=== PATIENT | female | born 1950 | race African-American/Black ===

== ENCOUNTER → 2016-10-17 | Outpatient (CLI) | payer MEDICARE, OTHER ==
--- NOTE | 2016-10-17 12:29 | RADIOLOGY REPORT (SQ) ---
EXAM DESCRIPTION: L SPINE WHOLE COMPLETED DATE/TIME: 10/17/2016 9:53 am REASON FOR STUDY: OA OF BACK (M15) R60.9 EDEMA, UNSPECIFIED I73.9 PERIPHERAL VASCULAR DISEASE, UNS PECIFIED COMPARISON: None. NUMBER OF VIEWS: Five views including obliques. TECHNIQUE: AP, lateral, oblique, and sacral radiographic images acquired of the lumbar spine. LIMITATIONS: None. FINDINGS: MINERALIZATION: Osteopenic SEGMENTATION: 6 lumbar vertebral bodies are present. Additional segment without gabi is labeled T1 2. This puts the most inferior well-developed disc space at L5-S1. ALIGNMENT: Normal. VERTEBRAE: Maintained height. No fracture or worrisome bone lesion. DISCS: Disc space loss of height at L4-5 and L5-S1. POSTERIOR ELEMENTS: Pedicles and facets are intact. No pars defect or posterior arch defects. Bilat eral facet arthropathy at L3-4, L4-5, L5-S1. HARDWARE: None in the spine. PARASPINAL SOFT TISSUES: Normal. PELVIS: Intact as visualized. No fractures or worrisome bone lesions. SI joints intact. OTHER: Calcified abdominal aorta without calcified aneurysm. IMPRESSION: Degenerative changes lower lumbar spine TECHNICAL DOCUMENTATION: JOB ID: [id number] [employer]- All Rights Reserved
--- NOTE | 2016-10-17 12:30 | RADIOLOGY REPORT (SQ) ---
EXAM DESCRIPTION: VENOUS BILATERAL LOWER COMPLETED DATE/TIME: 10/17/2016 10:03 am REASON FOR STUDY: EDEMA, PERIPHERAL VASCULAR DISEASE R60.9 EDEMA, UNSPECIFIED I73.9 PERIPHERAL VAS CULAR DISEASE, UNSPECIFIED COMPARISON: None. TECHNIQUE: Dynamic and static lucas scale and color images acquired of both lower extremity venous sy stems. Selected spectral images acquired with additional compression and augmentation maneuvers. Imag es stored on PACS. LIMITATIONS: None. FINDINGS: RIGHT LEG COMMON FEMORAL AND FEMORAL: Normal phasicity, compression and augmentation. No visualized echogenic m aterial on lucas scale. No defects on color images. POPLITEAL: Normal compression and augmentation. No visualized echogenic material on lucas scale. No de fects on color images. CALF VESSELS: Normal compression and augmentation. No visualized echogenic material on lucas scale. No defects on color image. GSV AND SSV: Normal compression. No visualized echogenic material on lucas scale. No defects on color images. ANY DEEP VENOUS INSUFFICIENCY: Not evaluated. ANY EVIDENCE OF POPLITEAL CYST: No. OTHER: No other significant finding. LEFT LEG COMMON FEMORAL AND FEMORAL: Normal phasicity, compression and augmentation. No visualized echogenic m aterial on lucas scale. No defects on color images. POPLITEAL: Normal compression and augmentation. No visualized echogenic material on lucas scale. No de fects on color images. CALF VESSELS: Normal compression and augmentation. No visualized echogenic material on lucas scale. No defects on color images. GSV AND SSV: Normal compression. No visualized echogenic material on lucas scale. No defects on color images. ANY DEEP VENOUS INSUFFICIENCY: Not evaluated. ANY EVIDENCE POPLITEAL CYST: No. OTHER: No other significant finding. IMPRESSION: NO EVIDENCE DVT OR SVT IN EITHER LEG. TECHNICAL DOCUMENTATION: JOB ID: [id number] [employer]- All Rights Reserved
--- NOTE | 2016-10-17 12:31 | RADIOLOGY REPORT (SQ) ---
EXAM DESCRIPTION: ARTERIAL LOWER EXTREM BILAT COMPLETED DATE/TIME: 10/17/2016 10:04 am REASON FOR STUDY: EDEMA, PERIPHERAL VASCULAR DISEASE R60.9 EDEMA, UNSPECIFIED I73.9 PERIPHERAL VAS CULAR DISEASE, UNSPECIFIED COMPARISON: Venous Doppler bilateral lower extremities same date TECHNIQUE: Dynamic and static lucas scale and color images acquired of the lower extremity arteries. Additional selected spectral images recorded. ABIs recorded. LIMITATIONS: None. FINDINGS: RIGHT LEG: ABIS: Normal, over 1.0. INFLOW ARTERIES: Normal, no obstruction evident. FEMORAL ARTERIES:Multiphasic waveforms. Normal, no velocity elevation to suggest focal stenosis. Norm al color Doppler evaluation. No aneurysm. POPLITEAL ARTERY:Multiphasic waveforms. Normal, no velocity elevation to suggest focal stenosis. Norm al color Doppler evaluation. No aneurysm. PATENT TIBIOPERONEAL TRUNK AND 3 VESSEL RUNOFF: Yes, normal vessels. TBI: Not performed. OTHER: No other significant finding. LEFT LEG: ABIS: Normal, over 1.0. INFLOW ARTERIES: Normal, no obstruction evident. FEMORAL ARTERIES:Multiphasic waveforms. Normal, no velocity elevation to suggest focal stenosis. Norm al color Doppler evaluation. No aneurysm. POPLITEAL ARTERY:Multiphasic waveforms. Normal, no velocity elevation to suggest focal stenosis. Norm al color Doppler evaluation. No aneurysm. PATENT TIBIOPERONEAL TRUNK AND 3 VESSEL RUNOFF: Yes, normal vessels. TBI: Not performed. OTHER: No other significant finding. IMPRESSION: NORMAL BILATERAL LOWER EXTREMITY ARTERIAL DOPPLER WITH ABIs. COMMENT: [facility] NORMAL: Greater than 1.0 MINIMAL DISEASE: 0.9 to 1.0 CLAUDICATION: 0.5 to 0.9 SEVERE ARTERIAL DISEASE: Less than 0.5 [facility] NORMAL: Greater than 1.0 (1.2 If Heavy Calcifications) NORMAL TO MILD ISCHEMIA: 0.8 to 1.0 MODERATE ISCHEMIA: 0.4 to 0.8 SEVERE ISCHEMIA: Less than 0.4 TECHNICAL DOCUMENTATION: JOB ID: [id number]- All Rights Reserved
== END ==
LOC: SP 07:57
PROVIDERS: ATTEND Student in an Organized Health Care Education/Training Program
DX: I73.9 Peripheral vascular disease, unspecified (principal); R60.9 Edema, unspecified; M47.9 Spondylosis, unspecified
CPT/HCPCS: 72110; 93922; 93925; 93970

== ENCOUNTER 2016-12-10 12:32 | Observation (INO) | payer MEDICARE, OTHER ==
[2016-12-10] MEDS ORDERED: ASPIRIN 81 MG TABLET, CHEWABLE PO ONE (13:04)
--- NOTE | 2016-12-10 13:27 | ER Document Report ---
ED General - General Chief Complaint: Palpitations Stated Complaint: ABNORMAL LABS Time Seen by Provider: 12/10/16 13:04 Mode of Arrival: Ambulatory Information source: Patient Notes: 66-year-old female history of hypertension diabetes who was given nitroglycerin by her medical records director Dr. serrano presents with complaints of jaw pain arm pain shortness of breath palpitations. Symptoms initially started a few days prior. TRAVEL OUTSIDE OF THE [place] IN LAST 30 DAYS: No - HPI Onset: Other Onset/Duration: Persistent Quality of pain: Achy Severity: Mild Pain Level: 1 Associated symptoms: Chest pain Exacerbated by: Denies Relieved by: Denies Similar symptoms previously: Yes Recently seen / treated by doctor: Yes - Related Data Allergies/Adverse Reactions: Sulfa (Sulfonamide Antibiotics) Allergy (Mild, Verified 09/05/15 10:09) whelps, rash codeine [Codeine] Adverse Reaction (Intermediate, Verified 09/05/15 10:09) n/v Home Medications: Current Home Medications Alprazolam [Xanax] 1 mg PO BIDP PRN 12/10/16 [History] Aspirin [Aspirin EC] 81 mg PO DAILY 12/10/16 [History] Atenolol [Tenormin 50 mg Tablet] 50 mg PO BID 12/10/16 [History] Ergocalciferol (Vitamin D2) [Vitamin D2] 50,000 unit PO HUGO@1000 12/10/16 [ History] Esomeprazole Magnesium [Nexium] 40 mg PO DAILY 12/10/16 [History] Fexofenadine HCl [Stacy] 180 mg PO DAILY 12/10/16 [History] Hydrocodone/Acetaminophen [[place] 10-325 mg Tablet] 0.5 tab PO BIDP PRN 12/10/16 [History] Insulin Glargine,Hum.rec.anlog [Lantus Solostar] 24 units SQ QHS 12/10/16 [ History] Iron/FA/Mv W Mn/Ca/Lyc/Lut/Ala [Multi-Betic For Women Tablet] 1 tab PO BID 12/10 [History] Losartan Potassium [Cozaar 100 mg Tablet] 100 mg PO DAILY 12/10/16 [History] Lovastatin 40 mg PO QHS 12/10/16 [History] Metformin HCl [Glucophage XR 500 mg Tablet] 1,000 mg PO BID 12/10/16 [History] Montelukast Sodium [Singulair 10 mg Tablet] 10 mg PO QPM 12/10/16 [History] Nifedipine [Nifedipine ER] 30 mg PO QPM 12/10/16 [History] Nitroglycerin [Nitro-Dur 5 mg (0.2 mg/Hr) Transdermal Patch] 1 patch TOP DAILY 12/10/16 [History] Pregabalin [Lyrica 50 mg Capsule] 50 mg PO QHS 12/10/16 [History] Promethazine HCl [Phenergan 25 mg Tablet] 25 mg PO Q6HP PRN 12/10/16 [History] Zolpidem Tartrate [Ambien 5 mg Tablet] 5 mg PO QHS 12/10/16 [History] Past Medical History - Social History Smoking Status: Never Smoker Cigarette use (# per day): No Chew tobacco use (# tins/day): No Smoking Education Provided: No Family History: Reviewed & Not Pertinent Patient has suicidal ideation: No Patient has homicidal ideation: No - Past Medical History Cardiac Medical History: Reports: Hx Hypertension Denies: Hx Coronary Artery Disease, Hx Heart Attack Pulmonary Medical History: Reports: Hx Asthma - child Denies: Hx Bronchitis, Hx COPD, Hx Pneumonia Neurological Medical History: Denies: Hx Cerebrovascular Accident, Hx Seizures Endocrine Medical History: Reports: Hx Diabetes Mellitus Type 2, Hx Hypothyroidism Renal/ Medical History: Denies: Hx Peritoneal Dialysis GI Medical History: Reports: Hx Gastroesophageal Reflux Disease Musculoskeltal Medical History: Reports Hx Arthritis - knees Past Surgical History: Reports: Hx Cholecystectomy. Denies: Hx Hysterectomy - Immunizations Hx Diphtheria, Pertussis, Tetanus Vaccination: Yes Review of Systems - Review of Systems Notes: REVIEW OF SYSTEMS: CONSTITUTIONAL : Denies fever, chills, or sweats. Denies recent illness. EENT: Jaw pain CARDIOVASCULAR: Denies chest pain. Denies palpitations or racing or irregular heart beat. Denies ankle edema. RESPIRATORY: Denies cough, cold, or chest congestion. Denies shortness of breath, difficulty breathing, or wheezing. GASTROINTESTINAL: Denies abdominal pain or distention. Denies nausea, vomiting , or diarrhea. Denies blood in vomitus, stools, or per rectum. Denies black, tarry stools. Denies constipation. GENITOURINARY: Denies difficulty urinating, painful urination, burning, frequency, blood in urine, or discharge. FEMALE GENITOURINARY: Denies vaginal bleeding, heavy or abnormal periods, irregular periods. Denies vaginal discharge or odor. MUSCULOSKELETAL: Arm pain SKIN: Denies rash, lesions or sores. HEMATOLOGIC : Denies easy bruising or bleeding. LYMPHATIC: Denies swollen, enlarged glands. NEUROLOGICAL: Denies confusion or altered mental status. Denies passing out or loss of consciousness. Denies dizziness or lightheadedness. Denies headache. Denies weakness or paralysis or loss of use of either side. Denies problems with gait or speech. Denies sensory loss, numbness, or tingling. Denies seizures. PSYCHIATRIC: Denies anxiety or stress. Denies depression, suicidal ideation, or homicidal ideation. ALL OTHER SYSTEMS REVIEWED AND NEGATIVE. PHYSICAL EXAMINATION: GENERAL: Well-appearing, well-nourished and in no acute distress. HEAD: Atraumatic, normocephalic. EYES: Pupils equal round and reactive to light, extraocular movements intact, conjunctiva are normal. ENT: Nares patent, oropharynx clear without exudates. Moist mucous membranes. NECK: Normal range of motion, supple without lymphadenopathy LUNGS: Breath sounds clear to auscultation bilaterally and equal. No wheezes rales or rhonchi. HEART: Regular rate and rhythm without murmurs ABDOMEN: Soft, nontender, nondistended abdomen. No guarding, no rebound. No masses appreciated. Female : deferred Musculoskeletal: Normal range of motion, no pitting or edema. No cyanosis. NEUROLOGICAL: Cranial nerves grossly intact. Normal speech, normal gait. Normal sensory, motor exams PSYCH: Normal mood, normal affect. SKIN: Warm, Dry, normal turgor, no rashes or lesions noted. Dictation was performed using [employer] voice recognition software Physical Exam - Vital signs Vitals: Temp Pulse Resp BP Pulse Ox 97.6 F 74 20 148/96 H 98 12/10/16 12:38 12/10/16 12:38 12/10/16 12:38 12/10/16 12:38 12/10/16 12:38 Course - Re-evaluation Re-evalutation: 12/10/16 15:11 Cardiac enzymes are negative patient will be observed for ACS rule out - Vital Signs Vital signs: Temp Pulse Resp BP Pulse Ox 98.6 F 74 15 158/83 H 96 12/10/16 15:01 12/10/16 12:38 12/10/16 15:01 12/10/16 15:01 12/10/16 15:01 - Laboratory Result Diagrams: 12/10/16 13:20 12/10/16 13:20 Laboratory results interpreted by me: 12/10/16 12/10/16 13:20 13:20 RDW 14.9 H Glucose 179 H Alkaline Phosphatase 128 H - Diagnostic Test Radiology reviewed: Image reviewed, Reports reviewed - EKG Interpretation by Me EKG shows normal: Sinus rhythm, [place], Intervals, QRS Complexes Discharge - Discharge Clinical Impression: Palpitation Chest pain Qualifiers: Chest pain type: unspecified Qualified Code(s): R07.9 - Chest pain, unspecified Condition: Stable Disposition: ADMITTED OBSERVATION Admitting Provider: Hospitalist
[2016-12-10 13:37] LABS: ABSOLUTE EOSINOPHILS # (AUTO) 0.1 10^3/uL (0.0-0.6); ABSOLUTE LYMPHOCYTES (AUTO) 1.3 10^3/uL (0.5-4.7); ABSOLUTE MONOCYTES (AUTO) 0.6 10^3/uL (0.1-1.4); ABSOLUTE NEUT (AUTO) 4.4 10^3/uL (1.7-8.2); BASOPHILS % (AUTO) 0.3 % (0-2); EOSINOPHILS % (AUTO) 1.7 % (0-6); HEMATOCRIT 42.9 % (36.0-47.0); HEMOGLOBIN 14.6 g/dL (12.0-15.5); HGB HCT DIFFERENCE 0.9; LYMPHOCYTES % (AUTO) 19.8 % (13-45); MEAN CORPUSCULAR HEMOGLOBIN 29.9 pg (27.0-33.4); MEAN CORPUSCULAR HGB CONC 34.1 g/dL (32.0-36.0); MEAN CORPUSCULAR VOLUME 88 fl (80-97); MONOCYTES % (AUTO) 9.4 % (3-13); RED BLOOD COUNT 4.89 10^6/uL (3.72-5.28); RED CELL DISTRIBUTION WIDTH 14.9 % (11.5-14.0); SEGMENTED NEUTROPHILS % (AUTO) 68.8 % (42-78); WHITE BLOOD COUNT 6.4 10^3/uL (4.0-10.5)
[2016-12-10 13:58] LABS: ALANINE AMINOTRANSFERASE 37 U/L (9-52); ALBUMIN 4.5 g/dL (3.5-5.0); ALKALINE PHOSPHATASE 128 U/L (38-126); ANION GAP 11 (5-19); ASPARTATE AMINO TRANSFERASE 35 U/L (14-36); BILIRUBIN,DIRECT 0.4 mg/dL (0.0-0.4); BILIRUBIN,TOTAL 0.6 mg/dL (0.2-1.3); BLOOD UREA NITROGEN 20 mg/dL (7-20); CARBON DIOXIDE 27 mmol/L (22-30); CHLORIDE 106 mmol/L (98-107); CREATINE KINASE 36 U/L (30-135); CREATININE RESULT 0.61 mg/dL (0.52-1.25); GLUCOSE 179 mg/dL (75-110); POTASSIUM 3.9 mmol/L (3.6-5.0); SODIUM 144.2 mmol/L (137-145)
--- NOTE | 2016-12-10 14:08 | RADIOLOGY REPORT (SQ) ---
EXAM DESCRIPTION: CHEST SINGLE VIEW COMPLETED DATE/TIME: 12/10/2016 1:36 pm REASON FOR STUDY: chest pain COMPARISON: Chest films 08/01/2014, 08/28/2015 EXAM PARAMETERS: NUMBER OF VIEWS: One view. TECHNIQUE: Single frontal radiographic view of the chest acquired. RADIATION DOSE: NA LIMITATIONS: None. FINDINGS: LUNGS AND PLEURA: No opacities, masses or pneumothorax. No pleural effusion. MEDIASTINUM AND HILAR STRUCTURES: No masses. Contour normal. HEART AND VASCULAR STRUCTURES: Heart normal in size. Normal vasculature. BONES: No acute findings. HARDWARE: None in the chest. OTHER: No other significant finding. IMPRESSION: NO ACUTE RADIOGRAPHIC FINDING IN THE CHEST. TECHNICAL DOCUMENTATION: JOB ID: [id number]
[2016-12-10 14:10] LABS: CREATINE KINASE MB 0.44 ng/mL (<4.55)
[2016-12-10 14:15] LABS: TROPONIN I < 0.012 ng/mL
[2016-12-10] MEDS ORDERED: ONDANSETRON 4 MG TAB.RAPDIS PO PRN (15:30)
[2016-12-10] MEDS ORDERED: DEXTROSE 40% GEL 15 GM TUBE PO PRN ×4 (15:55→15:56)
[2016-12-10] MEDS ORDERED: DEXTROSE 50%-WATER 25 GM/50 ML DISP.SYRIN IV PRN ×4 (15:55→15:56)
[2016-12-10] MEDS ORDERED: GLUCAGON,HUMAN RECOMB 1 MG INJ SUBCUT PRN (15:55)
[2016-12-10] MEDS ORDERED: GLUCAGON,HUMAN RECOMB 1 MG INJ IM PRN (15:56)
[2016-12-10] MEDS ORDERED: HYDROCODONE/ACETAMINOPHEN 10-325 MG TABLET PO PRN (16:13)
[2016-12-10] MEDS ORDERED: MAGNESIUM SULFATE/D5W 1 GM/100 ML RTUPB IV SCH (16:15)
[2016-12-10] MEDS ORDERED: HYDRALAZINE HCL INJ/PF 20 MG/1 ML SDV IV PRN (16:18)
--- NOTE | 2016-12-10 16:19 | PDOC H&P ---
History of Present Illness Admission Date/PCP: 12/10/16 15:03 ROSANNE ABEBE DO Patient complains of: Chest Pain History of Present Illness: MARCUS ALVARADO is a 66 year old female present with chest pain for 2 days accompanied by jaw pain, shoulder pain which is made worse with ambulation. Pt also states that she has had heart palpation and + light headedness for 2 weeks. Pt states that her blood glucose has been elevated in the 200-300. ER states that Troponins are negative. She also reports that she had MRI done on her lower back that demonstrated a right renal cyst. Patient states that she then had an ultrasound done on her kidney performed by [facility]. Past Medical History Cardiac Medical History: Reports: Hypertension Denies: Coronary Artery Disease, Myocardial Infarction Pulmonary Medical History: Reports: Asthma - child Denies: Bronchitis, Chronic Obstructive Pulmonary Disease (COPD), Pneumonia Neurological Medical History: Denies: Seizures Endocrine Medical History: Reports: Diabetes Mellitus Type 2, Hypothyroidism GI Medical History: Reports: Gastroesophageal Reflux Disease Musculoskeltal Medical History: Reports: Arthritis - knees Hematology: Denies: Anemia Past Surgical History Past Surgical History: Reports: Cholecystectomy Denies: Hysterectomy Social History Smoking Status: Never Smoker Frequency of Alcohol Use: None Hx Recreational Drug Use: No Drugs: None Family History Family History: Reviewed & Not Pertinent Parental Family History Reviewed: Yes Children Family History Reviewed: Yes Sibling(s) Family History Reviewed.: Yes Medication/Allergy Home Medications: Alprazolam [Xanax] 1 mg PO BIDP PRN 12/10/16 Aspirin [Aspirin EC] 81 mg PO DAILY 12/10/16 Atenolol [Tenormin 50 mg Tablet] 50 mg PO BID 12/10/16 Ergocalciferol (Vitamin D2) [Vitamin D2] 50,000 unit PO HUGO@1000 12/10/16 Esomeprazole Magnesium [Nexium] 40 mg PO DAILY 12/10/16 Fexofenadine HCl [Stacy] 180 mg PO DAILY 12/10/16 Hydrocodone/Acetaminophen [[place] 10-325 mg Tablet] 0.5 tab PO BIDP PRN 12/10/16 Insulin Glargine,Hum.rec.anlog [Lantus Solostar] 24 units SQ QHS 12/10/16 Iron/FA/Mv W Mn/Ca/Lyc/Lut/Ala [Multi-Betic For Women Tablet] 1 tab PO BID 12/10 Losartan Potassium [Cozaar 100 mg Tablet] 100 mg PO DAILY 12/10/16 Lovastatin 40 mg PO QHS 12/10/16 Metformin HCl [Glucophage XR 500 mg Tablet] 1,000 mg PO BID 12/10/16 Montelukast Sodium [Singulair 10 mg Tablet] 10 mg PO QPM 12/10/16 Nifedipine [Nifedipine ER] 30 mg PO QPM 12/10/16 Nitroglycerin [Nitro-Dur 5 mg (0.2 mg/Hr) Transdermal Patch] 1 patch TOP DAILY 12/10/16 Pregabalin [Lyrica 50 mg Capsule] 50 mg PO QHS 12/10/16 Promethazine HCl [Phenergan 25 mg Tablet] 25 mg PO Q6HP PRN 12/10/16 Zolpidem Tartrate [Ambien 5 mg Tablet] 5 mg PO QHS 12/10/16 Allergies/Adverse Reactions: Sulfa (Sulfonamide Antibiotics) Allergy (Mild, Verified 09/05/15 10:09) whelps, rash codeine [Codeine] Adverse Reaction (Intermediate, Verified 09/05/15 10:09) n/v Review of Systems Constitutional: ABSENT: chills, fever(s), headache(s), weight gain, weight loss Eyes: ABSENT: visual disturbances Ears: ABSENT: hearing changes Nose, Mouth, and Throat: PRESENT: other - jaw pain Cardiovascular: PRESENT: chest pain, other - shortness of breath Respiratory: ABSENT: cough, hemoptysis Gastrointestinal: ABSENT: abdominal pain, constipation, diarrhea, hematemesis, hematochezia, nausea, vomiting Genitourinary: ABSENT: dysuria, hematuria Musculoskeletal: ABSENT: joint swelling Integumentary: ABSENT: rash, wounds Neurological: ABSENT: abnormal gait, abnormal speech, confusion, dizziness, focal weakness, syncope Psychiatric: ABSENT: anxiety, depression, homidical ideation, suicidal ideation Endocrine: ABSENT: cold intolerance, heat intolerance, polydipsia, polyuria Hematologic/Lymphatic: ABSENT: easy bleeding, easy bruising Physical Exam Vital Signs: Temp Pulse Resp BP Pulse Ox 98.6 F 74 15 158/83 H 96 12/10/16 15:01 12/10/16 12:38 12/10/16 15:01 12/10/16 15:01 12/10/16 15:01 General appearance: PRESENT: no acute distress, well-developed, well-nourished Head exam: PRESENT: atraumatic, normocephalic Eye exam: PRESENT: conjunctiva pink, EOMI. ABSENT: scleral icterus Ear exam: PRESENT: normal external ear exam Mouth exam: PRESENT: moist, tongue midline Neck exam: ABSENT: carotid bruit, JVD, lymphadenopathy, thyromegaly Respiratory exam: PRESENT: clear to auscultation robby. ABSENT: rales, rhonchi, wheezes Cardiovascular exam: PRESENT: RRR. ABSENT: diastolic murmur, rubs, systolic murmur Pulses: PRESENT: normal dorsalis pedis pul Vascular exam: PRESENT: normal capillary refill GI/Abdominal exam: PRESENT: normal bowel sounds, soft. ABSENT: distended, guarding, mass, organolmegaly, rebound, tenderness Rectal exam: PRESENT: deferred Extremities exam: PRESENT: full ROM, tenderness - Left shoulder. ABSENT: calf tenderness, clubbing, pedal edema Neurological exam: PRESENT: alert, awake, oriented to person, oriented to place , oriented to time, oriented to situation, CN II-XII grossly intact. ABSENT: motor sensory deficit Psychiatric exam: PRESENT: appropriate affect, normal mood. ABSENT: homicidal ideation, suicidal ideation Skin exam: PRESENT: dry, intact, warm. ABSENT: cyanosis, rash Results Impressions: Chest X-Ray 12/10/16 13:04 IMPRESSION: NO ACUTE RADIOGRAPHIC FINDING IN THE CHEST. Assessment & Plan - Diagnosis (1) Chest pain Qualifiers: Chest pain type: unspecified Qualified Code(s): R07.9 - Chest pain, unspecified Is this a current diagnosis for this admission?: Yes Plan: Unstable angina: Cardiology has been consulted. Will check troponins, CK, continue aspirin, atenolol, losartan, statin. Will continue patient's oral pain medication. Will check hemoglobin A1c, lipid profile, TSH and free T4. (2) Essential hypertension Is this a current diagnosis for this admission?: Yes Plan: We will continue patient's home medications. We will add as needed hydralazine for SBP is greater than 1 60 mmHg (3) Palpitation Is this a current diagnosis for this admission?: Yes Plan: Most likely secondary to hypomagnesemia: We will give 3 g of magnesium. Will check mag and a.m. (4) Magnesium deficiency Is this a current diagnosis for this admission?: Yes Plan: We will give 3 g of magnesium. Patient's magnesium today is 1.2. Mag in a.m. 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 Will hold metformin in case patient needs to have cardiac cath. (6) Obesity (BMI 30-39.9) Is this a current diagnosis for this admission?: Yes Plan: Discussed dietary changes (7) DVT prophylaxis Is this a current diagnosis for this admission?: Yes Plan: weight base Lovenox. - Time Time Spent: 30 to 50 Minutes Anticipated discharge: Home
[2016-12-10] MEDS ORDERED: [UNRECOGNIZED DRUG - MIXTURE] PO SCH (18:00)
--- NOTE | 2016-12-10 18:22 | EKG REPORT ---
SEVERITY:- ABNORMAL ECG - SINUS RHYTHM VENTRICULAR PREMATURE COMPLEX INCOMPLETE LEFT BUNDLE BRANCH BLOCK LEFT VENTRICULAR HYPERTROPHY : Confirmed by: Sridevi Adamson MD 10-Dec-2016 18:21:33
[2016-12-10] MEDS: ATENOLOL 50 MG TABLET PO SCH (18:50)
[2016-12-10] MEDS: MONTELUKAST SODIUM 10 MG TABLET PO SCH (18:50)
[2016-12-10] MEDS: NIFEDIPINE 30 MG TAB.ER.24 PO SCH (18:51)
--- NOTE | 2016-12-10 19:46 | PDOC CONSULTATION ---
Consultation Consult Date: 12/10/16 Attending physician:: FRANKLIN BLACK Consult reason:: CP History of Present Illness Admission Date/PCP: 12/10/16 15:30 ROSANNE ABEBE DO Patient complains of: Chest pain History of Present Illness: MARCUS ALVARADO is a 66 year old female present with chest pain for 2 days accompanied by jaw pain, shoulder pain which is made worse with ambulation. Pt also states that she has had heart palpation and + light headedness for 2 weeks. Pt states that her blood glucose has been elevated in the 200-300. ER states that Troponins are negative. She also reports that she had MRI done on her lower back that demonstrated a right renal cyst. Patient states that she then had an ultrasound done on her kidney performed by [facility]. Patient described the chest discomfort as aching as well as tightness in the chest. There is some associated shortness of breath. Patient denied any associated nausea vomiting or diaphoresis. Patient claims chest discomfort has improved since admission. I been asked to evaluate this patient because of chest pain. This history was reviewed, confirmed and supplemented. Past Medical History Cardiac Medical History: Reports: Hypertension Denies: Coronary Artery Disease, Myocardial Infarction Pulmonary Medical History: Reports: Asthma - child Denies: Bronchitis, Chronic Obstructive Pulmonary Disease (COPD), Pneumonia Neurological Medical History: Denies: Seizures Endocrine Medical History: Reports: Diabetes Mellitus Type 2, Hypothyroidism GI Medical History: Reports: Gastroesophageal Reflux Disease Musculoskeltal Medical History: Reports: Arthritis - knees Hematology: Denies: Anemia Past Surgical History Past Surgical History: Reports: Cholecystectomy Denies: Hysterectomy Social History Information Source: Patient Smoking Status: Former Smoker Last Time Smoked: 1996 Frequency of Alcohol Use: Rare Hx Recreational Drug Use: No Drugs: None - Advance Directive Resuscitation Status: Full Code Family History Family History: Hypertension Parental Family History Reviewed: Yes Children Family History Reviewed: Yes Sibling(s) Family History Reviewed.: Yes Medication/Allergy Home Medications: Alprazolam [Xanax] 1 mg PO BIDP PRN 12/10/16 Aspirin [Aspirin EC] 81 mg PO DAILY 12/10/16 Atenolol [Tenormin 50 mg Tablet] 50 mg PO BID 12/10/16 Ergocalciferol (Vitamin D2) [Vitamin D2] 50,000 unit PO HUGO@1000 12/10/16 Esomeprazole Magnesium [Nexium] 40 mg PO DAILY 12/10/16 Fexofenadine HCl [Stacy] 180 mg PO DAILY 12/10/16 Hydrocodone/Acetaminophen [Adel 10-325 mg Tablet] 0.5 tab PO BIDP PRN 12/10/16 Insulin Glargine,Hum.rec.anlog [Lantus Solostar] 24 units SQ QHS 12/10/16 Iron/FA/Mv W Mn/Ca/Lyc/Lut/Ala [Multi-Betic For Women Tablet] 1 tab PO BID 12/10 Losartan Potassium [Cozaar 100 mg Tablet] 100 mg PO DAILY 12/10/16 Lovastatin 40 mg PO QHS 12/10/16 Metformin HCl [Glucophage XR 500 mg Tablet] 1,000 mg PO BID 12/10/16 Montelukast Sodium [Singulair 10 mg Tablet] 10 mg PO QPM 12/10/16 Nifedipine [Nifedipine ER] 30 mg PO QPM 12/10/16 Nitroglycerin [Nitro-Dur 5 mg (0.2 mg/Hr) Transdermal Patch] 1 patch TOP DAILY 12/10/16 Pregabalin [Lyrica 50 mg Capsule] 50 mg PO QHS 12/10/16 Promethazine HCl [Phenergan 25 mg Tablet] 25 mg PO Q6HP PRN 12/10/16 Zolpidem Tartrate [Ambien 5 mg Tablet] 5 mg PO QHS 12/10/16 Aspirin [Aspirin 81 mg Chewable Tablet] 324 mg PO DAILY tab.chew 12/12/16 Insulin Lispro [Humalog Kwikpen U-200] 3 unit SQ MEALS #1 insuln.pen 12/12/16 Ranolazine [Ranexa] 500 mg PO BID #60 tab.er.12h 12/12/16 Allergies/Adverse Reactions: Sulfa (Sulfonamide Antibiotics) Allergy (Mild, Verified 09/05/15 10:09) whelps, rash codeine [Codeine] Adverse Reaction (Intermediate, Verified 09/05/15 10:09) n/v Review of Systems Review of Systems: Please see history of present illness and past medical history as wall. Constitutional: No fever or chills reported. Head : No recent chronic headaches, recent head injury. Eyes: No recent eye pain, diplopia, redness, discharge, acute visual changes. Ears: No recent chronic ear pain, acute hearing loss, ear discharge. Oral cavity: No recent ulcerations, bleeding, oral cavity discomfort. Neck: No recent acute neck pain reported. Hematologic: No recent easy bruising or bleeding or hematologic malignancy reported. Lymphatic: No recent lymphatic malignancy, chronic lymphadenopathy reported yet Cardiovascular system review: See history of present illness. Respiratory system review: No recent chronic cough, hemoptysis, blood clots in the lungs reported. Mild Shortness of breath on exertion Gastrointestinal system review: Negative for any recent acute or chronic abdominal pain, hematemesis, melena, recent change in bowel habits. Genitourinary system review: No recent acute or chronic hematuria, flank pain, UTI etc. reported. Skin system review: Negative for any recent abnormal bruising, no rash, no pruritus reported. Neurologic: No prior history of strokes, mini strokes, seizure disorder. Psychologic: No history of major psychosis or major depression reported. Musculoskeletal: Minor aches and pains reported. No acute joint swelling reported. Endocrine: No recent polyuria, polydipsia, recent heat or cold intolerance. Physical Exam Vital Signs: Temp Pulse Resp BP Pulse Ox 97.5 F 73 18 145/65 H 96 12/10/16 17:07 12/10/16 17:31 12/10/16 17:07 12/10/16 17:07 12/10/16 17:07 Intake & Output 12/09/16 12/10/16 12/11/16 06:59 06:59 06:59 Intake Total 100 Balance 100 Exam: GENERAL: well-nourished and in no acute distress. Alert and oriented x3 HEAD: Atraumatic, normocephalic. EYES: Pupils equal round and reactive to light, extraocular movements intact, sclera anicteric, conjunctiva are normal. ENT: TMs normal, nares patent, oropharynx clear without exudates. Moist mucous membranes. No oral ulcerations or bleeding gums noted NECK: supple without lymphadenopathy. Trachea is central. No cervical or axillary lymphadenopathy noted. Carotids are 2+, JVD WNL LUNGS: Respiration seems nonlabored, no significant accessory muscle action noted. Breath sounds clear to auscultation bilaterally and equal noted. No wheezes rales or rhonchi noted. No significant dullness noted on percussion. CHEST: Palpation of the chest wall shows mild diffuse chest wall tenderness. No other significant abnormalities noted. HEART: [place] [employer], No PSH, 1/6 RITIKA aortic area, 1/6 anderson systolic murmur mitral area, no rubs, no gallops. ABDOMEN: Soft, no significant tenderness appreciated, normoactive bowel sounds. No guarding, no rebound. No rigidity noted . No masses appreciated. EXTREMITIES: Pedal pulses are 1-2+, no calf tenderness noted. No clubbing or cyanosis.trace to 1+ pedal edema noted NEUROLOGICAL: Focused neurological exam showed no significant neurologic deficit. Normal speech, no focal weakness appreciated. PSYCH: Normal mood, normal affect. Judgment and insight within normal limits. SKIN: No significant ecchymosis, rash, ulcerations or signs of pruritus noted. MUSCULOSKELETAL EXAM: No significant joint swelling noted. Results EKG Comments: Sinus rhythm, left axis deviation but no acute ST-T wave changes are noted. Impressions: Chest X-Ray 12/10/16 13:04 IMPRESSION: NO ACUTE RADIOGRAPHIC FINDING IN THE CHEST. Assessment & Plan - Diagnosis (1) Chest pain Qualifiers: Chest pain type: unspecified Qualified Code(s): R07.9 - Chest pain, unspecified Is this a current diagnosis for this admission?: Yes (2) Diabetes Qualifiers: Diabetes mellitus type: type 2 Diabetes mellitus complication status: with unspecified complications Is this a current diagnosis for this admission?: Yes (3) Essential hypertension Is this a current diagnosis for this admission?: Yes (4) Magnesium deficiency Is this a current diagnosis for this admission?: Yes (5) Obesity (BMI 30-39.9) Is this a current diagnosis for this admission?: Yes (6) Palpitation Is this a current diagnosis for this admission?: Yes (7) Dyslipidemia Is this a current diagnosis for this admission?: Yes - Notes Notes: ECHO, NST Chest pain: Patient has some typical and atypical features of chest pain. Cardiac enzymes so far has been negative. Electrocardiogram did not show any definitive ST segment changes. Multiple differential diagnoses exist in this patient. In descending order of probability this includes underlying coronary artery disease, gastroesophageal reflux, musculoskeletal pain, referred pain from elsewhere, anxiety panic disorder etc.Patient has significant cardiac risk factors, which indicates that there is a intermediate probability of chest discomfort coming from underlying CAD. Feel that it would need to be evaluated further. Discussed evaluation to assess this. In this regard risk benefits of nuclear stress test and other alternative processes were discussed in detail. The patient prefers to undergo nuclear stress test. The small risk of radiation , myocardial infarction, , cardiac arrhythmias, respiratory distress etc. were discussed. Patient understood the risks and gave informed consent. Nuclear stress test was therefore scheduled. For risk evaluation, patient is also being scheduled for a 2-D echocardiogram. Patient questions were answered. Diabetes: Recommend good control of blood sugar. However should avoid any hypoglycemia. Patient being expertly managed by primary care [facility]. Hypertension: Reasonably well controlled. Blood pressure goal in this patient is 135/85 or less. This was discussed with the patient. Currently blood pressure under reasonable control. Better medication for this patient are BRANDI inhibitor/ARB/beta judy etc. discussed side effects of uncontrolled hypertension and also severe hypotension. Magnesium deficiency: Continue replacement therapy. Obesity: Discussed adverse effect of overweight/obesity on cardiovascular event rate, sleep apnea, diabetes and hypertension et cetera. Patient has been recommended weight loss. Patient advised in weight loss. Palpitations: Replace electrolytes. Recommend beta-judy therapy. Dyslipidemia: recommend antilipid therapy with statins preferred. - Time Time Spent: 30 to 50 Minutes - CODE STATUS was discussed, patient remains full code. Surrogate decision-maker patient's cousin and patient daughter. multiple medical problems were addressed. More than 50% of the time spent coordinating care, discussing management plans with involved caregivers. Management plans discussed with involved personnels. Medical decision making was of moderate to high complexity, patient's has multiple comorbidities. Medications reviewed and adjusted accordingly: Yes
[2016-12-10 20:33] LABS: FREE T3 3.32 pg/mL (2.77-5.27)
[2016-12-10 20:46] LABS: THYROID STIMULATING HORMONE 2.35 uIU/mL (0.47-4.68)
[2016-12-10] MEDS: ATORVASTATIN CALCIUM 10 MG TABLET PO SCH (21:38)
[2016-12-10] MEDS: PREGABALIN 50 MG CAPSULE PO SCH (21:39)
[2016-12-10] MEDS: ENOXAPARIN SODIUM INJ 150 MG/1 ML DISP.SYRIN SUBCUT SCH (21:52)
[2016-12-10] MEDS: INSULIN GLARGINE,HUM.REC.ANLOG 300 UNIT/3 ML INSULN.PEN SUBCUT SCH (21:53)
[2016-12-10] MEDS ORDERED: (PENDING PHARMACY ID) (Lovastatin [Lovastatin] 40 MG) PO SCH (22:00)
[2016-12-10] MEDS ORDERED: HEPARIN SOD (PORCINE) 5,000 UNIT/ML 1 ML SYRINGE SUBCUT SCH (22:00)
[2016-12-10] MEDS ORDERED: INSULIN GLARGINE,HUM.REC.ANLOG 300 UNIT/3 ML INSULN.PEN SUBCUT SCH (22:00)
[2016-12-11] MEDS: MAGNESIUM SULFATE/D5W 1 GM/100 ML RTUPB IV SCH ×4 (00:07→12:12)
[2016-12-11] MEDS: ALPRAZOLAM 0.5 MG TABLET PO PRN ×2 (00:08→23:16)
[2016-12-11] MEDS: LANSOPRAZOLE 15 MG TAB.RAP.DR PO SCH (05:36)
[2016-12-11 09:49] LABS: HEMATOCRIT 41.3 % (36.0-47.0); HEMOGLOBIN 13.8 g/dL (12.0-15.5); HGB HCT DIFFERENCE 0.1; MEAN CORPUSCULAR HEMOGLOBIN 29.4 pg (27.0-33.4); MEAN CORPUSCULAR HGB CONC 33.4 g/dL (32.0-36.0); MEAN CORPUSCULAR VOLUME 88 fl (80-97); RED BLOOD COUNT 4.69 10^6/uL (3.72-5.28); RED CELL DISTRIBUTION WIDTH 14.6 % (11.5-14.0); WHITE BLOOD COUNT 5.2 10^3/uL (4.0-10.5)
[2016-12-11 09:55] LABS: APPEARANCE,URINE CLEAR; BILIRUBIN,URINE NEGATIVE (NEGATIVE); GLUCOSE, URINE NEGATIVE (NEGATIVE); KETONES,URINE NEGATIVE (NEGATIVE); LEUKOCYTE ESTERASE,URINE NEGATIVE (NEGATIVE); NITRITE,URINE NEGATIVE (NEGATIVE); PROTEIN,URINE NEGATIVE (NEGATIVE); URINE SPECIFIC GRAVITY 1.017; UROBILINOGEN,URINE NEGATIVE mg/dL (<2.0)
[2016-12-11] MEDS ORDERED: NITROGLYCERIN 5 MG (0.2 MG/HR) PATCH.TD24 TOP SCH (10:00)
[2016-12-11 10:23] LABS: ALANINE AMINOTRANSFERASE 45 U/L (9-52); ALBUMIN 4.1 g/dL (3.5-5.0); ALKALINE PHOSPHATASE 123 U/L (38-126); ANION GAP 10 (5-19); ASPARTATE AMINO TRANSFERASE 30 U/L (14-36); BILIRUBIN,DIRECT 0.4 mg/dL (0.0-0.4); BILIRUBIN,TOTAL 0.6 mg/dL (0.2-1.3); BLOOD UREA NITROGEN 18 mg/dL (7-20); CARBON DIOXIDE 26 mmol/L (22-30); CHLORIDE 105 mmol/L (98-107); CHOLESTEROL 174.57 mg/dL (0-200); CREATININE RESULT 0.67 mg/dL (0.52-1.25); Direct HDL 47 mg/dL (>40); GLUCOSE 175 mg/dL (75-110); MAGNESIUM 1.9 mg/dL (1.6-2.3); POTASSIUM 4.1 mmol/L (3.6-5.0); SODIUM 141.3 mmol/L (137-145); TOTAL PROTEIN 7.3 g/dL (6.3-8.2); TRIGLYCERIDES 164 mg/dL (<150)
[2016-12-11 10:34] LABS: DIRECT LDL 100 mg/dL (<100)
[2016-12-11 10:35] LABS: VLDL CHOLESTEROL 32.8 mg/dL (10-31)
[2016-12-11] MEDS: ENOXAPARIN SODIUM INJ 150 MG/1 ML DISP.SYRIN SUBCUT SCH ×2 (12:04→23:21)
[2016-12-11] MEDS: ASPIRIN 81 MG TABLET, CHEWABLE PO SCH (12:05)
[2016-12-11] MEDS: LORATADINE 10 MG TABLET PO SCH (12:06)
[2016-12-11] MEDS: LOSARTAN POTASSIUM 50 MG TABLET PO SCH (12:06)
[2016-12-11] MEDS: PRENATAL VITAMIN W-O CA NO5/FE FUMARATE/FA CAPSULE PO SCH (12:06)
[2016-12-11] MEDS: ATENOLOL 50 MG TABLET PO SCH ×2 (12:07→17:39)
--- NOTE | 2016-12-11 12:18 | PDOC PROGRESS REPORT ---
Subjective Progress Note for:: 12/11/16 Subjective:: Patient seems to be doing better with gradual improvement. Pt is denying any chest arm or neck discomfort. Patient denying any PND, orthopnea. Patient denied any sustained palpitations, dizziness, syncope, near syncope. Patient denying any fever chills. Patient denying any other significant discomfort. Patient is maintaining sinus rhythm. Nuclear stress test procedure was explained to the patient in detail. Risks benefits were discussed and informed consent was obtained. Alternatives were discussed. Patient informed that based on risk factors, physical exam, lab data findings and symptoms there is at least intermediate probability of underlying CAD. Nuclear stress test procedure was therefore scheduled. Review of systems: Rest review of systems negative. Medications: Medications have been reviewed. Physical Exam Vital Signs: Temp Pulse Resp BP Pulse Ox 98.0 F 79 18 140/71 H 100 12/11/16 07:43 12/11/16 07:43 12/11/16 07:43 12/11/16 07:43 12/11/16 07:43 Intake & Output 12/10/16 12/11/16 12/12/16 06:59 06:59 06:59 Intake Total 540 Output Total 600 Balance -60 Weight 132.6 kg Exam: GENERAL: well-nourished and in no acute distress. Alert and oriented x3 HEAD: Atraumatic, normocephalic. EYES: Pupils equal round and reactive to light, extraocular movements intact, sclera anicteric, conjunctiva are normal. ENT: TMs normal, nares patent, oropharynx clear without exudates. Moist mucous membranes. No oral ulcerations or bleeding gums noted NECK: supple without lymphadenopathy. Trachea is central. No cervical or axillary lymphadenopathy noted. Carotids are 2+, JVD WNL LUNGS: Respiration seems nonlabored, no significant accessory muscle action noted. Breath sounds clear to auscultation bilaterally and equal noted. No wheezes rales or rhonchi noted. No significant dullness noted on percussion. CHEST: Palpation of the chest wall shows no significant chest wall tenderness. No other significant abnormalities noted. HEART: [place] [employer], No PSH, 1/6 RITIKA aortic area, 1/6 anderson systolic murmur mitral area, no rubs, no gallops. ABDOMEN: Soft, no significant tenderness appreciated, normoactive bowel sounds. No guarding, no rebound. No rigidity noted . No masses appreciated. EXTREMITIES: Pedal pulses are 1-2+, no calf tenderness noted. No clubbing or cyanosis.trace to 1+ pedal edema noted NEUROLOGICAL: Focused neurological exam showed no significant neurologic deficit. Normal speech, no focal weakness appreciated. PSYCH: Normal mood, normal affect. Judgment and insight within normal limits. SKIN: No significant ecchymosis, rash, ulcerations or signs of pruritus noted. MUSCULOSKELETAL EXAM: No significant joint swelling noted. Results Laboratory Results: 12/11/16 09:21 12/11/16 09:21 12/10/16 12/10/16 12/11/16 19:45 23:05 00:00 WBC RBC Hgb Hct MCV MCH MCHC RDW Plt Count Sodium Potassium Chloride Carbon Dioxide Anion Gap BUN Creatinine Est GFR ( Amer) Est GFR (Non-Af Amer) Glucose Calcium Magnesium 1.4 L Total Bilirubin AST ALT Alkaline Phosphatase Total Protein Albumin Triglycerides Cholesterol LDL Cholesterol Direct VLDL Cholesterol HDL Cholesterol TSH 2.35 Free T4 1.39 Free T3 pg/mL 3.32 Urine Color YELLOW Urine Appearance CLEAR Urine pH 5.0 Ur Specific Sawyer 1.017 Urine Protein NEGATIVE Urine Glucose (UA) NEGATIVE Urine Ketones NEGATIVE Urine Blood NEGATIVE Urine Nitrite NEGATIVE Ur Leukocyte Esterase NEGATIVE Urine WBC (Auto) 1 Urine RBC (Auto) 0 12/11/16 12/11/16 09:21 09:21 WBC 5.2 RBC 4.69 Hgb 13.8 Hct 41.3 MCV 88 MCH 29.4 MCHC 33.4 RDW 14.6 H Plt Count 207 Sodium 141.3 Potassium 4.1 Chloride 105 Carbon Dioxide 26 Anion Gap 10 BUN 18 Creatinine 0.67 Est GFR ( Amer) > 60 Est GFR (Non-Af Amer) > 60 Glucose 175 H Calcium 10.0 Magnesium 1.9 Total Bilirubin 0.6 AST 30 ALT 45 Alkaline Phosphatase 123 Total Protein 7.3 Albumin 4.1 Triglycerides 164 H Cholesterol 174.57 LDL Cholesterol Direct 100 VLDL Cholesterol 32.8 H HDL Cholesterol 47 TSH Free T4 Free T3 pg/mL Urine Color Urine Appearance Urine pH Ur Specific Sawyer Urine Protein Urine Glucose (UA) Urine Ketones Urine Blood Urine Nitrite Ur Leukocyte Esterase Urine WBC (Auto) Urine RBC (Auto) 12/10/16 12/10/16 12/11/16 19:45 19:45 01:21 Creatine Kinase 30 34 Troponin I < 0.012 12/11/16 12/11/16 12/11/16 01:21 09:21 09:21 Creatine Kinase 29 L Troponin I < 0.012 < 0.012 EKG Comments: Telemetry strips shows sinus rhythm, no sustained tachycardia or bradycardia arrhythmias were noted. Impressions: Chest X-Ray 12/10/16 13:04 IMPRESSION: NO ACUTE RADIOGRAPHIC FINDING IN THE CHEST. Assessment & Plan - Diagnosis (1) Chest pain Qualifiers: Chest pain type: unspecified Qualified Code(s): R07.9 - Chest pain, unspecified Is this a current diagnosis for this admission?: Yes (2) Diabetes Qualifiers: Diabetes mellitus type: type 2 Diabetes mellitus complication status: with unspecified complications Is this a current diagnosis for this admission?: Yes (3) Essential hypertension Is this a current diagnosis for this admission?: Yes (4) Magnesium deficiency Is this a current diagnosis for this admission?: Yes (5) Obesity (BMI 30-39.9) Is this a current diagnosis for this admission?: Yes (6) Palpitation Is this a current diagnosis for this admission?: Yes (7) Dyslipidemia Is this a current diagnosis for this admission?: Yes - Notes Notes: Chest pain: Patient underwent stress part of nuclear stress test today. Patient to have rest imaging tomorrow. This is because of patient's significant obesity. Pharmacologic stress was performed without any complications. Results will be available tomorrow. Diabetes: Seems to be under satisfactory control. Hypertension: Under reasonable control. Blood pressure goal is 135/85 or less. BRANDI inhibitor/ARB preferred. Magnesium deficiency: This is being corrected. Obesity: Currently is stable. Patient interested in weight loss. Palpitations: Currently improved. Dyslipidemia: Recommend statin therapy. - Time Time with patient: Greater than 35 minutes - CODE STATUS was discussed, patient remains full code. Surrogate decision-maker unchanged. Multiple medical problems were addressed. More than 50% of the time spent coordinating care, discussing management plans with involved caregivers. Management plans discussed with involved personnels. Medical decision making was of moderate to high complexity, patient's has multiple comorbidities. Medications reviewed and adjusted accordingly: Yes
--- NOTE | 2016-12-11 12:30 | XCELERA REPORT ---
[address] [address] Transthoracic Echocardiogram Report Name: MARCUS ALVARADO Age: 66 yrs Gender: Female : 1950 Patient Status: Inpatient Patient Location: [address] [place] [address] Study Date: 12/11/2016 08:12 AM Height: 69 in Weight: 300 lb BSA: 2.5 m2 Procedure: A complete two-dimensional transthoracic echocardiogram was performed (2D, M-mode, spectral and color flow Doppler). The study was technically difficult with many images being suboptimal in quality. Reason For Study: CP Ordering Physician: CARMEN SEXTON Performed By: Petrona Torres Interpretation Summary The study was technically difficult with many images being suboptimal in quality. The left ventricular ejection fraction is normal. Doppler measurements suggest pseudonormalized left ventricular relaxation, which is associated with grade II/IV or mild to moderate diastolic dysfunction There is mild concentric left ventricular hypertrophy. The left ventricle is grossly normal size. The right ventricular systolic function is normal. The left atrium is mildly dilated. The right atrium is normal. There is a trace amount of mitral regurgitation There is no mitral valve stenosis. No aortic regurgitation is present. There is no aortic valve stenosis There is a trace or physiologic amount of tricuspid regurgitation Tricuspid regurgitation jet envelope not well defined to measure RV systolic pressure accurately. The aortic root is not well visualized. The inferior vena cava was not well visualized There is no pericardial effusion. MMode/2D Measurements & Calculations RVDd: 2.0 cm LVIDd: 4.6 cm FS: 32.1 % Ao root diam: 2.8 cm IVSd: 1.2 cm LVIDs: 3.1 cm EDV(Teich): 99.1 ml LVPWd: 1.2 cm ESV(Teich): 39.3 ml Ao root area: 5.9 cm2 EF(Teich): 60.3 % Doppler Measurements & Calculations MV E max leonid: MV dec slope: Ao V2 max: LV V1 max P.6 cm/sec 113.3 cm/sec 3.8 mmHg MV A max leonid: 308.5 cm/sec2 Ao max PG: LV V1 max: 83.5 cm/sec MV dec time: 5.1 mmHg 97.1 cm/sec MV E/A: 0.89 0.24 sec PA V2 max: TR max leonid: 76.7 cm/sec 232.1 cm/sec PA max PG: TR max P.7 mmHg 2.4 mmHg Left Ventricle The left ventricle is grossly normal size. There is mild concentric left ventricular hypertrophy. The left ventricular ejection fraction is normal. Doppler measurements suggest pseudonormalized left ventricular relaxation, which is associated with grade II/IV or mild to moderate diastolic dysfunction. Wall motion cannot be accurately commented on, but no definite regional wall motion abnormalities noted. Right Ventricle The right ventricle is grossly normal size. There is normal right ventricular wall thickness. The right ventricular systolic function is normal. Atria The right atrium is normal. The left atrium is mildly dilated. Interarterial septum not well visualized and not well dopplered. Cannot comment on ASD/PFO presence. Mitral Valve The mitral valve leaflets are sclerotic, but show no functional abnormalities. There is no mitral valve stenosis. There is a trace amount of mitral regurgitation. Aortic Valve The aortic valve is grossly normal. There is no aortic valve stenosis. No aortic regurgitation is present. Tricuspid Valve The tricuspid valve is not well visualized secondary to technical limitations. There is no tricuspid stenosis. There is a trace or physiologic amount of tricuspid regurgitation. Tricuspid regurgitation jet envelope not well defined to measure RV systolic pressure accurately. Pulmonic Valve The pulmonic valve is not well visualized. Great Vessels The aortic root is not well visualized. The inferior vena cava was not well visualized. Effusions There is no pericardial effusion. : CARMEN SEXTON > Carmen Sexton
[2016-12-11] MEDS: INSULIN REG, HUMAN 100 UNIT/ML 3 ML VIAL (PYX) SUBCUT PRN ×2 (12:43→16:58)
[2016-12-11] MEDS: NITROGLYCERIN 5 MG (0.2 MG/HR) PATCH.TD24 TD SCH (12:50)
[2016-12-11] MEDS ORDERED: AMINOPHYLLINE INJ/PF 250 MG/10 ML SDV IV ONE (14:10)
[2016-12-11] MEDS ORDERED: REGADENOSON INJ 0.4 MG/5 ML DISP.SYRIN IV ONE (14:10)
--- NOTE | 2016-12-11 16:24 | PDOC PROGRESS REPORT ---
Subjective Progress Note for:: 12/11/16 Subjective:: Patient seen earlier this morning who states that she is doing okay. Patient denies having chest pain this morning. She states that patient stress test will be done over 2 days. Physical Exam Vital Signs: Temp Pulse Resp BP Pulse Ox 97.5 F 75 20 144/78 H 96 12/11/16 15:43 12/11/16 15:43 12/11/16 15:43 12/11/16 15:43 12/11/16 15:43 Intake & Output 12/10/16 12/11/16 12/12/16 06:59 06:59 06:59 Intake Total 540 Output Total 600 Balance -60 Weight 132.6 kg General appearance: PRESENT: no acute distress, well-developed, well-nourished Head exam: PRESENT: atraumatic, normocephalic Eye exam: PRESENT: conjunctiva pink, EOMI. ABSENT: scleral icterus Ear exam: PRESENT: normal external ear exam Mouth exam: PRESENT: moist, tongue midline Neck exam: ABSENT: carotid bruit, JVD, lymphadenopathy, thyromegaly Respiratory exam: PRESENT: clear to auscultation robby. ABSENT: rales, rhonchi, wheezes Cardiovascular exam: PRESENT: RRR. ABSENT: diastolic murmur, rubs, systolic murmur Pulses: PRESENT: normal dorsalis pedis pul Vascular exam: PRESENT: normal capillary refill GI/Abdominal exam: PRESENT: normal bowel sounds, soft. ABSENT: distended, guarding, mass, organolmegaly, rebound, tenderness Rectal exam: PRESENT: deferred Extremities exam: PRESENT: full ROM. ABSENT: calf tenderness, clubbing, pedal edema Neurological exam: PRESENT: alert, awake, oriented to person, oriented to place , oriented to time, oriented to situation, CN II-XII grossly intact. ABSENT: motor sensory deficit Psychiatric exam: PRESENT: appropriate affect, normal mood. ABSENT: homicidal ideation, suicidal ideation Skin exam: PRESENT: dry, intact, warm. ABSENT: cyanosis, rash Results Laboratory Results: 12/11/16 09:21 12/11/16 09:21 12/10/16 12/10/16 12/11/16 19:45 23:05 00:00 WBC RBC Hgb Hct MCV MCH MCHC RDW Plt Count Sodium Potassium Chloride Carbon Dioxide Anion Gap BUN Creatinine Est GFR ( Amer) Est GFR (Non-Af Amer) Glucose Calcium Magnesium 1.4 L Total Bilirubin AST ALT Alkaline Phosphatase Total Protein Albumin Triglycerides Cholesterol LDL Cholesterol Direct VLDL Cholesterol HDL Cholesterol TSH 2.35 Free T4 1.39 Free T3 pg/mL 3.32 Urine Color YELLOW Urine Appearance CLEAR Urine pH 5.0 Ur Specific [place] 1.017 Urine Protein NEGATIVE Urine Glucose (UA) NEGATIVE Urine Ketones NEGATIVE Urine Blood NEGATIVE Urine Nitrite NEGATIVE Ur Leukocyte Esterase NEGATIVE Urine WBC (Auto) 1 Urine RBC (Auto) 0 12/11/16 12/11/16 09:21 09:21 WBC 5.2 RBC 4.69 Hgb 13.8 Hct 41.3 MCV 88 MCH 29.4 MCHC 33.4 RDW 14.6 H Plt Count 207 Sodium 141.3 Potassium 4.1 Chloride 105 Carbon Dioxide 26 Anion Gap 10 BUN 18 Creatinine 0.67 Est GFR ( Amer) > 60 Est GFR (Non-Af Amer) > 60 Glucose 175 H Calcium 10.0 Magnesium 1.9 Total Bilirubin 0.6 AST 30 ALT 45 Alkaline Phosphatase 123 Total Protein 7.3 Albumin 4.1 Triglycerides 164 H Cholesterol 174.57 LDL Cholesterol Direct 100 VLDL Cholesterol 32.8 H HDL Cholesterol 47 TSH Free T4 Free T3 pg/mL Urine Color Urine Appearance Urine pH Ur Specific [place] Urine Protein Urine Glucose (UA) Urine Ketones Urine Blood Urine Nitrite Ur Leukocyte Esterase Urine WBC (Auto) Urine RBC (Auto) 12/10/16 12/10/16 12/11/16 19:45 19:45 01:21 Creatine Kinase 30 34 Troponin I < 0.012 12/11/16 12/11/16 12/11/16 01:21 09:21 09:21 Creatine Kinase 29 L Troponin I < 0.012 < 0.012 Impressions: Chest X-Ray 12/10/16 13:04 IMPRESSION: NO ACUTE RADIOGRAPHIC FINDING IN THE CHEST. Assessment & Plan - Diagnosis (1) Chest pain Qualifiers: Chest pain type: unspecified Qualified Code(s): R07.9 - Chest pain, unspecified Is this a current diagnosis for this admission?: Yes Plan: Unstable angina: stress test in progress (2) Essential hypertension Is this a current diagnosis for this admission?: Yes Plan: Continue current treatment plan (3) Palpitation Is this a current diagnosis for this admission?: Yes Plan: Most likely secondary to hypomagnesemia: Resolved. (4) Magnesium deficiency Is this a current diagnosis for this admission?: Yes Plan: Patient given additional magnesium replacement today. (5) Diabetic acidosis, type II Qualifiers: Diabetes mellitus correction insulin use: with correction use Is this a current diagnosis for this admission?: Yes Plan: We will continue current treatment plan. HBG A1c of 7.8 (6) Obesity (BMI 30-39.9) Is this a current diagnosis for this admission?: Yes Plan: Discussed dietary changes (7) DVT prophylaxis Is this a current diagnosis for this admission?: Yes Plan: weight base Lovenox. - Time Time Spent with patient: 15-24 minutes
[2016-12-11] MEDS: NIFEDIPINE 30 MG TAB.ER.24 PO SCH (17:39)
[2016-12-11] MEDS: MONTELUKAST SODIUM 10 MG TABLET PO SCH (17:39)
[2016-12-11] MEDS: PREGABALIN 50 MG CAPSULE PO SCH (23:20)
[2016-12-11] MEDS: INSULIN GLARGINE,HUM.REC.ANLOG 300 UNIT/3 ML INSULN.PEN SUBCUT SCH (23:20)
[2016-12-11] MEDS: ATORVASTATIN CALCIUM 10 MG TABLET PO SCH (23:20)
[2016-12-12 05:54] LABS: ABSOLUTE EOSINOPHILS # (AUTO) 0.2 10^3/uL (0.0-0.6); ABSOLUTE LYMPHOCYTES (AUTO) 1.4 10^3/uL (0.5-4.7); ABSOLUTE MONOCYTES (AUTO) 0.7 10^3/uL (0.1-1.4); ABSOLUTE NEUT (AUTO) 3.4 10^3/uL (1.7-8.2); BASOPHILS % (AUTO) 0.2 % (0-2); EOSINOPHILS % (AUTO) 3.1 % (0-6); HEMATOCRIT 38.4 % (36.0-47.0); HGB HCT DIFFERENCE 0.6; LYMPHOCYTES % (AUTO) 24.8 % (13-45); MEAN CORPUSCULAR HEMOGLOBIN 29.6 pg (27.0-33.4); MEAN CORPUSCULAR HGB CONC 33.8 g/dL (32.0-36.0); MEAN CORPUSCULAR VOLUME 87 fl (80-97); MONOCYTES % (AUTO) 11.5 % (3-13); RED BLOOD COUNT 4.39 10^6/uL (3.72-5.28); RED CELL DISTRIBUTION WIDTH 14.4 % (11.5-14.0); SEGMENTED NEUTROPHILS % (AUTO) 60.4 % (42-78); WHITE BLOOD COUNT 5.7 10^3/uL (4.0-10.5)
[2016-12-12 06:01] LABS: ANION GAP 10 (5-19); BLOOD UREA NITROGEN 22 mg/dL (7-20); CALCIUM 9.7 mg/dL (8.4-10.2); CARBON DIOXIDE 25 mmol/L (22-30); CHLORIDE 105 mmol/L (98-107); CREATININE RESULT 0.78 mg/dL (0.52-1.25); GLUCOSE 161 mg/dL (75-110); POTASSIUM 4.3 mmol/L (3.6-5.0); SODIUM 140.3 mmol/L (137-145)
[2016-12-12] MEDS: LANSOPRAZOLE 15 MG TAB.RAP.DR PO SCH (06:28)
--- NOTE | 2016-12-12 10:47 | Physician Advisory Note ---
Physician Advisor ProgressNote .: Pursuant to the plan for [place] Demetrius, I have reviewed the medical record for this patient. Physician Advisor Statement: Nice documentation of likely cause of CP, & of obesity (BMI 43.2), & likely cause of palpitations. CK
[2016-12-12] MEDS: ENOXAPARIN SODIUM INJ 150 MG/1 ML DISP.SYRIN SUBCUT SCH (10:48)
[2016-12-12] MEDS: NITROGLYCERIN 5 MG (0.2 MG/HR) PATCH.TD24 TD SCH (10:48)
[2016-12-12] MEDS: ASPIRIN 81 MG TABLET, CHEWABLE PO SCH (10:49)
[2016-12-12] MEDS: LOSARTAN POTASSIUM 50 MG TABLET PO SCH (10:49)
[2016-12-12] MEDS: LORATADINE 10 MG TABLET PO SCH (10:50)
[2016-12-12] MEDS: PRENATAL VITAMIN W-O CA NO5/FE FUMARATE/FA CAPSULE PO SCH (10:50)
[2016-12-12] MEDS: ATENOLOL 50 MG TABLET PO SCH (10:54)
[2016-12-12] MEDS: INSULIN REG, HUMAN 100 UNIT/ML 3 ML VIAL (PYX) SUBCUT PRN (11:37)
[2016-12-12] MEDS ORDERED: INSULIN REG, HUMAN 100 UNIT/ML 3 ML VIAL (PYX) SUBCUT PRN (12:00)
--- NOTE | 2016-12-12 14:00 | DRAGON STRESS TEST REPORT ---
INTRAVENOUS LEXISCAN CARDIOLITE STRESS TEST USING SINGLE PHOTON EMMISION COMPUTERIZED TOMOGRAPHIC. DATE OF PROCEDURE: December 11, 2016, 2 day protocol INDICATION : Chest pain CARDIAC RISK FACTORS: Diabetes, hypertension RESTING EKG: Sinus rhythm, left axis deviation, nonspecific IVCD, no significant baseline ST segment changes. STRESS EKG: No significant changes noted with LexiScan bolus REASON FOR TERMINATION: Protocol. PROCEDURE REPORT: Baseline heart rate 77 beats per minute with blood pressure of 141/69. Patient had no significant complaints. Heart rate at 2 minutes post bolus 93 with a blood pressure of 175/56. 3 minutes post bolus heart rate 83 with blood pressure of 165/62. No significant EKG changes were noted. Patient had no significant complaints during the procedure or postprocedure. Patient injected with Aminophyllin 75 mg at 3 minutes or later after Lexiscan bolus. CONCLUSIONS: Normal EKG and hemodynamic response to IV LexiScan. NUCLEAR DATA: Stress imaging performed on day 1, rest imaging performed on day 2. At rest the patient was given 40.4millicuries of technetium 99 sestamibi injected intravenously. As per protocol rest gated SPECT images were obtained. On the day of stress test, patient was given intravenous LexiScan at a dose of 0.4 mg in 5 mL intravenously, followed by flush with normal saline. Subsequently the stress dose of 42.6 millicuries of technetium 99 sestamibi was injected intravenously. As per protocol stress gated images were obtained. NUCLEAR INTERPRETATION: Both raw and processed data were used for interpretation. Visual, qualitative, computer-generated quantitative data was used. There was good myocardial uptake of technetium compound. Motion artifact and soft tissue attenuations were noted. Increased visceral uptake was noted. No definitive areas of transient perfusion defect noted, except for mild decreased uptake noted in the distal inferior wall, consistent with mild ischemia. No definitive areas of fixed perfusion defect or scars noted. EKG gated imaging showed LV EF at 58 %, rest and stress gated EF similar visually. T. I D. ratio was 1.11. Lung heart ratio noted to be within normal limits 0.29. No significant extracardiac and abnormal radiotracer activities were noted. RV free wall uptake was noted to be WNL. IMPRESSION: Also refer to comments under nuclear interpretation. Also test results needs to be interpreted in the context of pretest probability. 1. Small area of distal inferior wall decreased uptake in the stress imaging consistent with mild ischemia. Total area of perfusion defect was small. 2. There is no definitive scintigraphic evidence of myocardial infarction/scar. 3. EKG gated imaging shows left ventricular ejection fraction of approximately 58 %. 4. Clinical correlation requested as occasionally single vessel disease or balanced ischemia could be missed. In approximately 10% of the cases Lexiscan may not cause adequate vasodilatory stress. RECOMMENDATIONS: Aggressive risk factor modification, medical therapy. Clinical correlation with echocardiogram derived ejection fraction. Inability to exercise by itself can lead to increased cardiovascular event risks. Consider cardiology consultation and or follow-up if clinically indicated. I AM AVAILABLE FOR CARDIOLOGY CONSULTATION AND FOLLOWUP IF REQUESTED BY PMD Carmen Humphries M.D., RENAY Nurse Emergency software engineer web services, Board certified in cardiovascular diseases, Nuclear cardiology, Echocardiography Cardiac CT and cardiac MRI Ph. [phone] [facility]
[2016-12-12] MEDS ORDERED: ONDANSETRON 4 MG TAB.RAPDIS PO PRN (15:00)
[2016-12-12] MEDS ORDERED: HYDRALAZINE HCL INJ/PF 20 MG/1 ML SDV IV PRN (15:00)
[2016-12-12 16:25] VITALS: BP 123/70
--- NOTE | 2016-12-12 20:03 | PDOC PROGRESS REPORT ---
Subjective Progress Note for:: 12/12/16 Subjective:: Patient seems to be doing better with gradual improvement. Pt is denying any chest arm or neck discomfort. Patient denying any PND, orthopnea. Patient denied any sustained palpitations, dizziness, syncope, near syncope. Patient denying any fever chills. Patient denying any other significant discomfort. Patient is maintaining sinus rhythm. Nuclear stress test results were discussed with the patient in detail. Patient was noted to have small area of mild ischemia. Since LVEF is well preserved, and since patient's symptoms are well controlled, medical management is being recommended with very aggressive cardiology follow-up. Patient's daughter in the room. Stress test results and medical management plans were discussed. Review of systems: Rest review of systems negative. Medications: Medications have been reviewed. Physical Exam Vital Signs: Temp Pulse Resp BP Pulse Ox 97.6 F 75 20 123/70 96 12/12/16 16:22 12/12/16 16:22 12/12/16 16:22 12/12/16 16:22 12/12/16 16:22 Intake & Output 12/11/16 12/12/16 12/13/16 06:59 06:59 06:59 Intake Total 540 1740 Output Total 600 700 Balance -60 1040 Weight 132.6 kg 132.8 kg Exam: GENERAL: well-nourished and in no acute distress. Alert and oriented x3 HEAD: Atraumatic, normocephalic. EYES: Pupils equal round and reactive to light, extraocular movements intact, sclera anicteric, conjunctiva are normal. ENT: TMs normal, nares patent, oropharynx clear without exudates. Moist mucous membranes. No oral ulcerations or bleeding gums noted NECK: supple without lymphadenopathy. Trachea is central. No cervical or axillary lymphadenopathy noted. Carotids are 2+, JVD WNL LUNGS: Respiration seems nonlabored, no significant accessory muscle action noted. Breath sounds clear to auscultation bilaterally and equal noted. No wheezes rales or rhonchi noted. No significant dullness noted on percussion. CHEST: Palpation of the chest wall shows no significant chest wall tenderness. No other significant abnormalities noted. HEART: [place] HUMAN RESOURCES COORDINATOR, No PSH, 1/6 RITIKA aortic area, 1/6 anderson systolic murmur mitral area, no rubs, no gallops. ABDOMEN: Soft, no significant tenderness appreciated, normoactive bowel sounds. No guarding, no rebound. No rigidity noted . No masses appreciated. EXTREMITIES: Pedal pulses are 1-2+, no calf tenderness noted. No clubbing or cyanosis.trace to 1+ pedal edema noted NEUROLOGICAL: Focused neurological exam showed no significant neurologic deficit. Normal speech, no focal weakness appreciated. PSYCH: Normal mood, normal affect. Judgment and insight within normal limits. SKIN: No significant ecchymosis, rash, ulcerations or signs of pruritus noted. MUSCULOSKELETAL EXAM: No significant joint swelling noted. Results Laboratory Results: 12/12/16 05:07 12/12/16 05:07 12/12/16 12/12/16 05:07 05:07 WBC 5.7 RBC 4.39 Hgb 13.0 Hct 38.4 MCV 87 MCH 29.6 MCHC 33.8 RDW 14.4 H Plt Count 180 Seg Neutrophils % 60.4 Lymphocytes % 24.8 Monocytes % 11.5 Eosinophils % 3.1 Basophils % 0.2 Absolute Neutrophils 3.4 Absolute Lymphocytes 1.4 Absolute Monocytes 0.7 Absolute Eosinophils 0.2 Absolute Basophils 0.0 Sodium 140.3 Potassium 4.3 Chloride 105 Carbon Dioxide 25 Anion Gap 10 BUN 22 H Creatinine 0.78 Est GFR ( Amer) > 60 Est GFR (Non-Af Amer) > 60 Glucose 161 H Calcium 9.7 12/10/16 12/10/16 12/11/16 19:45 19:45 01:21 Creatine Kinase 30 34 Troponin I < 0.012 12/11/16 12/11/16 12/11/16 01:21 09:21 09:21 Creatine Kinase 29 L Troponin I < 0.012 < 0.012 EKG Comments: Sinus rhythm with occasional APCs and VPCs. Impressions: Chest X-Ray 12/10/16 13:04 IMPRESSION: NO ACUTE RADIOGRAPHIC FINDING IN THE CHEST. Assessment & Plan - Diagnosis (1) Chest pain Qualifiers: Chest pain type: unspecified Qualified Code(s): R07.9 - Chest pain, unspecified Is this a current diagnosis for this admission?: Yes (2) Diabetes Qualifiers: Diabetes mellitus type: type 2 Diabetes mellitus complication status: with unspecified complications Is this a current diagnosis for this admission?: Yes (3) Essential hypertension Is this a current diagnosis for this admission?: Yes (4) Magnesium deficiency Is this a current diagnosis for this admission?: Yes (5) Obesity (BMI 30-39.9) Is this a current diagnosis for this admission?: Yes (6) Palpitation Is this a current diagnosis for this admission?: Yes (7) Dyslipidemia Is this a current diagnosis for this admission?: Yes - Notes Notes: Nuclear stress test results were discussed with the patient in detail. Patient was noted to have small area of mild ischemia. Since LVEF is well preserved, and since patient's symptoms are well controlled, medical management is being recommended with very aggressive cardiology follow-up. Patient's daughter in the room. Stress test results and medical management plans were discussed. Chest pain: Stress test results were discussed. Chest pain could well be from underlying coronary artery disease based on stress test report. However confidence on the stress test accuracy was somewhat on the low side. Patient to be treated with very aggressive risk factor modification and medical therapy. Diabetes: Seems to be under satisfactory control. Hypertension: Under reasonable control. Blood pressure goal is 135/85 or less. BRANDI inhibitor/ARB preferred. Magnesium deficiency: This is corrected. Obesity: Currently is stable. Patient interested in weight loss. Palpitations: Currently improved. Dyslipidemia: Continue current antilipid therapy. - Time Time Spent with patient: Nuclear stress test results were discussed with the patient. Patient was informed that small area of pharmacologic stress-induced ischemia noted. No definite fixed defects were noted. Patient informed that occasionally worse disease or balanced ischemia could be missed. However based on the current study results, would recommend aggressive risk factor modification and medical therapy. It may also be worthwhile to consider evaluation or empiric management of other causes of chest pain, since confidence on results of the stress test was not good.. Should no other cause be found and if persistent in having chest pain, then cardiac catheterization should be considered. Right now , recommendations are for aggressive risk factor modification and medical management. Time with patient: Greater than 35 minutes - CODE STATUS was discussed, patient remains full code. Surrogate decision-maker unchanged. Multiple medical problems were addressed. More than 50% of the time spent coordinating care, discussing management plans with involved caregivers. Management plans discussed with involved personnels. Medical decision making was of moderate to high complexity, patient's has multiple comorbidities. Medications reviewed and adjusted accordingly: Yes
--- NOTE | 2016-12-13 17:45 | PDOC DISCHARGE SUMMARY ---
General - Admit/Disc Date/PCP Admission Date/Primary Care Provider: 12/10/16 15:30 ROSANNE ABEBE, Discharge Date: 12/13/16 - Discharge Diagnosis (1) Chest pain Is this a current diagnosis for this admission?: Yes Summary: Secondary to small area of distal inferior wall decreased uptake suggestive of mild ischemia: Patient was placed on Ranexa. Patient was instructed to follow- up with cardiology within 1-2 weeks. Patient was told to return if she experiences chest pain. Patient was already on appropriate medications for cardiac treatment. (2) Essential hypertension Is this a current diagnosis for this admission?: Yes (3) Palpitation Is this a current diagnosis for this admission?: Yes Summary: Most likely secondary to low magnesium: Resolved (4) Magnesium deficiency Is this a current diagnosis for this admission?: Yes Summary: Patient received magnesium replacement. At time of discharge magnesium was within normal range. (5) Diabetic acidosis, type II Is this a current diagnosis for this admission?: Yes Summary: Patient's insulin regimen was adjusted to include short acting insulin 3 units with each meal. (6) Obesity (BMI 30-39.9) Is this a current diagnosis for this admission?: Yes Summary: Pt encouraged to make dietary changes. - Additional Information Resuscitation Status: Full Code Discharge Diet: Cardiac, Diabetic Discharge Activity: Activity As Tolerated Home Medications: Alprazolam [Xanax] 1 mg PO BIDP PRN 12/10/16 Aspirin [Aspirin EC] 81 mg PO DAILY 12/10/16 Atenolol [Tenormin 50 mg Tablet] 50 mg PO BID 12/10/16 Ergocalciferol (Vitamin D2) [Vitamin D2] 50,000 unit PO HUGO@1000 12/10/16 Esomeprazole Magnesium [Nexium] 40 mg PO DAILY 12/10/16 Fexofenadine HCl [Stacy] 180 mg PO DAILY 12/10/16 Hydrocodone/Acetaminophen [[place] 10-325 mg Tablet] 0.5 tab PO BIDP PRN 12/10/16 Insulin Glargine,Hum.rec.anlog [Lantus Solostar] 24 units SQ QHS 12/10/16 Iron/FA/Mv W Mn/Ca/Lyc/Lut/Ala [Multi-Betic For Women Tablet] 1 tab PO BID 12/10 Losartan Potassium [Cozaar 100 mg Tablet] 100 mg PO DAILY 12/10/16 Lovastatin 40 mg PO QHS 12/10/16 Metformin HCl [Glucophage XR 500 mg Tablet] 1,000 mg PO BID 12/10/16 Montelukast Sodium [Singulair 10 mg Tablet] 10 mg PO QPM 12/10/16 Nifedipine [Nifedipine ER] 30 mg PO QPM 12/10/16 Nitroglycerin [Nitro-Dur 5 mg (0.2 mg/Hr) Transdermal Patch] 1 patch TOP DAILY 12/10/16 Pregabalin [Lyrica 50 mg Capsule] 50 mg PO QHS 12/10/16 Promethazine HCl [Phenergan 25 mg Tablet] 25 mg PO Q6HP PRN 12/10/16 Zolpidem Tartrate [Ambien 5 mg Tablet] 5 mg PO QHS 12/10/16 Aspirin [Aspirin 81 mg Chewable Tablet] 324 mg PO DAILY tab.chew 12/12/16 Insulin Lispro [Humalog Kwikpen U-200] 3 unit SQ MEALS #1 insuln.pen 12/12/16 Ranolazine [Ranexa] 500 mg PO BID #60 tab.er.12h 12/12/16 History of Present Illness Patient complains of: Chest pain History of Present Illness: MARCUS ALVARADO is a 66 year old female present with chest pain for 2 days accompanied by jaw pain, shoulder pain which is made worse with ambulation. Pt also states that she has had heart palpation and + light headedness for 2 weeks. Pt states that her blood glucose has been elevated in the 200-300. ER states that Troponins are negative. She also reports that she had MRI done on her lower back that demonstrated a right renal cyst. Patient states that she then had an ultrasound done on her kidney performed by [facility] Hospital Course Hospital Course: Patient is a 4-year-old female that presented to our facility with complaint of chest pain. Patient had a nuclear stress test that showed a distal area of disease which cardiology recommended medical management. Patient was found to have poorly controlled blood sugars and therefore was placed on short acting insulin to cover meals. Patient was encouraged to exercise and make dietary changes. Patient was told that if she experiences chest pain to return to the emergency room. If patient does return with complaint of chest pain patient will need to be sent to a tertiary center that is able to do cardiac cath. Physical Exam Vital Signs: Temp Pulse Resp BP Pulse Ox 97.6 F 75 20 123/70 96 12/12/16 16:22 12/12/16 16:22 12/12/16 16:22 12/12/16 16:22 12/12/16 16:22 Intake & Output 12/12/16 12/13/16 12/14/16 06:59 06:59 06:59 Intake Total 1740 Output Total 700 Balance 1040 Weight 132.8 kg General appearance: PRESENT: no acute distress, well-developed, well-nourished Head exam: PRESENT: atraumatic, normocephalic Eye exam: PRESENT: conjunctiva pink, EOMI. ABSENT: scleral icterus Ear exam: PRESENT: normal external ear exam Mouth exam: PRESENT: moist, tongue midline Neck exam: ABSENT: carotid bruit, JVD, lymphadenopathy, thyromegaly Respiratory exam: PRESENT: clear to auscultation robby. ABSENT: rales, rhonchi, wheezes Cardiovascular exam: PRESENT: RRR. ABSENT: diastolic murmur, rubs, systolic murmur Pulses: PRESENT: normal dorsalis pedis pul Vascular exam: PRESENT: normal capillary refill GI/Abdominal exam: PRESENT: normal bowel sounds, soft. ABSENT: distended, guarding, mass, organolmegaly, rebound, tenderness Rectal exam: PRESENT: deferred Extremities exam: PRESENT: full ROM. ABSENT: calf tenderness, clubbing, pedal edema Neurological exam: PRESENT: alert, awake, oriented to person, oriented to place , oriented to time, oriented to situation, CN II-XII grossly intact. ABSENT: motor sensory deficit Psychiatric exam: PRESENT: appropriate affect, normal mood. ABSENT: homicidal ideation, suicidal ideation Skin exam: PRESENT: dry, intact, warm. ABSENT: cyanosis, rash Results Laboratory Results: 12/12/16 05:07 12/12/16 05:07 12/11/16 00:00 Catheterized Urine Urine Culture - Final Lactobacillus (Vaginal Jessica) 12/10/16 12/10/16 12/11/16 19:45 19:45 01:21 Creatine Kinase 30 34 Troponin I < 0.012 12/11/16 12/11/16 12/11/16 01:21 09:21 09:21 Creatine Kinase 29 L Troponin I < 0.012 < 0.012 Impressions: Chest X-Ray 12/10/16 13:04 IMPRESSION: NO ACUTE RADIOGRAPHIC FINDING IN THE CHEST. Plan Time Spent: Greater than 30 Minutes
== END 2016-12-12 17:13 | disposition home health service (06) ==
LOC: ER 12:32 → EH 15:03 → UNDOADMOB 15:03 → EH 15:30 → 5 16:58
PROVIDERS: ADMIT Internal Medicine; ATTEND Internal Medicine
DX: R07.89 Other chest pain (principal); I10 Essential (primary) hypertension; R00.2 Palpitations; E61.2 Magnesium deficiency; E11.10 Type 2 diabetes mellitus with ketoacidosis without coma; E66.9 Obesity, unspecified; R68.84 Jaw pain; M25.519 Pain in unspecified shoulder; N28.1 Cyst of kidney, acquired; R06.02 Shortness of breath; E78.5 Hyperlipidemia, unspecified; M79.603 Pain in arm, unspecified; Z68.41 Body mass index [BMI] 40.0-44.9, adult; Z79.4 Long term (current) use of insulin; Z79.899 Other long term (current) drug therapy; Z79.82 Long term (current) use of aspirin; Z87.891 Personal history of nicotine dependence; Z90.49 Acquired absence of other specified parts of digestive tract; Z82.49 Family history of ischemic heart disease and other diseases of the circulatory system
CPT/HCPCS: 99285; 36415 ×3; 87086; 84439; 82553; 82962 ×3; 82550 ×2; 83735 ×2; 84443; 85025 ×2; 85027; 80048; 80053 ×2; 81001; 84484 ×2; 84481; 83036; 80061; 93306; 93017; 71010; 78452; 93005; 93010; 97116; 97163; 97166; A9500; A9270 ×25; J2785; J3490 ×5; J3475 ×2; J0280; Q9969; G8978; G8979; G8987; G8988; G0378; J1815

== ENCOUNTER → 2018-11-27 | Outpatient (CLI) | payer MEDICARE ==
--- NOTE | 2018-11-27 13:02 | RADIOLOGY REPORT (SQ) ---
EXAM DESCRIPTION: CHEST PA/LATERAL COMPLETED DATE/TIME: 11/27/2018 12:53 pm REASON FOR STUDY: SOB COMPARISON: 09/05/2015 EXAM PARAMETERS: NUMBER OF VIEWS: two views TECHNIQUE: Digital Frontal and Lateral radiographic views of the chest acquired. RADIATION DOSE: NA LIMITATIONS: none FINDINGS: LUNGS AND PLEURA: No opacities, masses or pneumothorax. No pleural effusion. MEDIASTINUM AND HILAR STRUCTURES: No masses or contour abnormalities. HEART AND VASCULAR STRUCTURES: Heart normal size. No evidence for failure. BONES: No acute findings. HARDWARE: None in the chest. OTHER: No other significant finding. IMPRESSION: NO SIGNIFICANT RADIOGRAPHIC FINDING IN THE CHEST. TECHNICAL DOCUMENTATION: JOB ID: [id number] [employer]- All Rights Reserved Reading location - IP/workstation name: [email or web address]
[2018-11-27 13:43] LABS: HEMATOCRIT 38.8 % (36.0-47.0); HEMOGLOBIN 12.7 g/dL (12.0-15.5); MEAN CORPUSCULAR HEMOGLOBIN 28.6 pg (27.0-33.4); MEAN CORPUSCULAR HGB CONC 32.8 g/dL (32.0-36.0); MEAN CORPUSCULAR VOLUME 87 fl (80-97); PLATELET COUNT 213 10^3/uL (150-450); RED BLOOD COUNT 4.45 10^6/uL (3.72-5.28); RED CELL DISTRIBUTION WIDTH 14.7 % (11.5-14.0); WHITE BLOOD COUNT 5.6 10^3/uL (4.0-10.5)
[2018-11-27 13:59] LABS: ALKALINE PHOSPHATASE 120 U/L (38-126); ANION GAP 11 (5-19); ASPARTATE AMINO TRANSFERASE 24 U/L (14-36); BILIRUBIN,DIRECT 0.2 mg/dL (0.0-0.4); BILIRUBIN,TOTAL 0.3 mg/dL (0.2-1.3); BLOOD UREA NITROGEN 17 mg/dL (7-20); CALCIUM 9.3 mg/dL (8.4-10.2); CARBON DIOXIDE 29 mmol/L (22-30); CHLORIDE 103 mmol/L (98-107); GLUCOSE 125 mg/dL (75-110); POTASSIUM 3.7 mmol/L (3.6-5.0); TOTAL PROTEIN 7.2 g/dL (6.3-8.2)
--- NOTE | 2018-11-27 15:09 | EKG REPORT ---
SEVERITY:- ABNORMAL ECG - SINUS RHYTHM LEFT ANTERIOR FASCICULAR BLOCK : Confirmed by: Charlie Camacho MD 27-Nov-2018 15:08:23
== END ==
LOC: OD 12:22
PROVIDERS: ATTEND Obstetrics & Gynecology
DX: R53.83 Other fatigue (principal); I11.0 Hypertensive heart disease with heart failure; I50.9 Heart failure, unspecified; R06.02 Shortness of breath; E11.9 Type 2 diabetes mellitus without complications; Z79.4 Long term (current) use of insulin; Z51.81 Encounter for therapeutic drug level monitoring; Z79.899 Other long term (current) drug therapy
CPT/HCPCS: 36415; 71046; 80053; 83880; 85027; 93005; 93010